=== PATIENT | male | born 1970 | race Native Hawaiian/Other Pacific Islander ===

== ENCOUNTER 2016-10-14 02:14 | Emergency (ER) | payer BC, OTHER ==
[2016-10-14] MEDS ORDERED: ZOFRAN IV ONE (02:43)
--- NOTE | 2016-10-14 03:19 | Emergency Department Report ---
HPI - General Chief Complaint: Nausea/Vomiting/Diarrhea Time Seen by Provider: 10/14/16 02:35 - HPI HPI: This is a 45-year-old male presents to the emergency department by EMS from home with complaint of a 2 day history of nausea, vomiting and diarrhea. Today the patient had 2 episodes of vomiting and the diarrhea has been too much to count. However during one of the episodes of vomiting today the patient passed out. He denies hitting his head or any significant trauma. He has some mild abdominal discomfort. He denies any past medical history. He has a primary care doctor but has not been able to see them regarding his symptoms. No recent travel or sick contacts at home. He tried some Lomotil yesterday for his diarrhea without much relief. He denies any fever, back pain, chest pain, shortness of breath. ED Past Medical Hx - Past Medical History Previous Medical History?: No - Surgical History Past Surgical History?: No - Social History Smoking Status: Never Smoker - Medications Home Medications: Home Medications Medication Instructions Recorded Confirmed Last Taken Type Ondansetron [Zofran Odt] 4 mg PO Q8H PRN #10 tab.rapdis 10/14/16 Unknown Rx ED Review of Systems ROS: Stated complaint: N/V/D Other details as noted in HPI Comment: All other systems reviewed and negative Constitutional: denies: chills, fever Eyes: denies: eye pain, eye discharge, vision change ENT: denies: ear pain, throat pain Respiratory: denies: cough, shortness of breath, wheezing Cardiovascular: syncope. denies: chest pain Gastrointestinal: abdominal pain, nausea, vomiting, diarrhea Genitourinary: denies: urgency, dysuria Musculoskeletal: denies: back pain, joint swelling, arthralgia Skin: denies: rash, lesions Neurological: denies: headache, weakness, paresthesias Physical Exam - Physical Exam Vital Signs: Vital Signs 10/14/16 10/14/16 02:21 02:25 Temperature 98.7 F Pulse Rate 80 Respiratory 18 Rate Blood Pressure 133/85 O2 Sat by Pulse 18 L 98 Oximetry Physical Exam: GENERAL: The patient is well-developed well-nourished. Pupils equal reactive to light bilaterally. HEENT: Normocephalic. Atraumatic. Extraocular motions are intact. Patient has moist mucous membranes. NECK: Supple. Trachea is midline. CHEST/LUNGS: Clear to auscultation. There is no respiratory distress noted. HEART/CARDIOVASCULAR: Regular. There is no tachycardia. There is no gallop rub or murmur. ABDOMEN: Abdomen is soft. No tenderness to palpation. No guarding or rebound tenderness. Patient has normal bowel sounds. There is no abdominal distention. SKIN: Skin is warm and dry. NEURO: The patient is awake, alert, and oriented. The patient is cooperative. The patient has no focal neurologic deficits. The patient has normal speech. MUSCULOSKELETAL: There is no tenderness or deformity. There is no limitation range of motion. There is no evidence of acute injury. ED Course Vital Signs 10/14/16 10/14/16 02:21 02:25 Temperature 98.7 F Pulse Rate 80 Respiratory 18 Rate Blood Pressure 133/85 O2 Sat by Pulse 18 L 98 Oximetry ED Medical Decision Making - Lab Data Result diagrams: 10/14/16 03:17 10/14/16 03:17 - EKG Data -: EKG Interpreted by Me EKG shows normal: sinus rhythm, axis, intervals, QRS complexes, ST-T waves ( Nonspecific ST-T) Rate: normal - EKG Data When compared to previous EKG there are: previous EKG unavailable Interpretation: nonspecific ST-T wave hima - Radiology Data Radiology results: image reviewed interpreted by me: Chest x-ray did not show any acute process. Heart is normal shape and size. No effusions. No pneumothorax. No signs of pneumonia seen. Abdominal x-ray does not show any acute process. Nonobstructive nonspecific bowel gas. - Medical Decision Making 45-year-old male presents the emergency department with 2 days of nausea, vomiting and diarrhea. He also had one syncopal episode today while vomiting. This sounds consistent with a vasovagal episode. Patient's labs are mostly unremarkable. There is no significant leukocytosis, electrolyte abnormalities, renal insufficiency or glucose abnormalities. Patient had a negative troponin. EKG does not show any signs of ST elevation [place], dysrhythmia. Chest and abdominal x-rays do not show any acute process or an etiology of symptoms. Patient was given some Zofran, IV fluid resuscitation. Upon reevaluation the patient says he is feeling much better. He has been reevaluated multiple times on multiple hours and has remained stable. Vital signs stable throughout his ED course. Patient seen ambulatory in the emergency department and appears stable. Discharged home with some Zofran and encouraged to increase oral rehydration. He will return to the ER with any worsening of his symptoms or any acute distress. - Differential Diagnosis vasovagal, orthostatic hypotension, dehydration, gastroenteritis Critical Care Time: No Critical care attestation.: If time is entered above; I have spent that time in minutes in the direct care of this critically ill patient, excluding procedure time. ED Disposition Clinical Impression: Dehydration, Vasovagal episode Nausea & vomiting Qualifiers: Vomiting type: unspecified Vomiting Intractability: non-intractable Qualified Code(s): R11.2 - Nausea with vomiting, unspecified Diarrhea Qualifiers: Diarrhea type: unspecified type Qualified Code(s): R19.7 - Diarrhea, unspecified Syncope Qualifiers: Syncope type: vasovagal syncope Qualified Code(s): R55 - Syncope and collapse Disposition: DISCHARGED TO HOME OR SELFCARE Is pt being admited?: No Condition: Stable Instructions: Dehydration (ED), Syncope (ED), Acute Nausea and Vomiting (ED), Acute Diarrhea (ED) Additional Instructions: Please increase your oral rehydration. Return to the emergency department with any worsening of your symptoms or any acute distress. Please try and follow-up with your primary care doctor the next few days. Prescriptions: Ondansetron [Zofran Odt] 4 mg PO Q8H PRN #10 tab.rapdis PRN Reason: Nausea Referrals: PRIMARY CARE, [Primary Care Provider] - 3-5 Days Forms: Accompanied Note, Work/School Release Form(ED) Time of Disposition: 06:09 Print Language: TAMAZIGHT
[2016-10-14 03:29] LABS: Basophils % (Auto) 0.6 % (0.0-1.8); Eosinophils % (Auto) 0.5 % (0.0-4.3); Hematocrit 48.8 % (35.5-45.6); Hemoglobin 16.3 gm/dl (11.8-15.2); Mean Corpuscular HGB Conc 33 % (32-34); Mean Corpuscular Hemoglobin 27 pg (28-32); Mean Corpuscular Volume 81 fl (84-94); Platelet Count 184 K/mm3 (140-440); Red Blood Count 5.99 M/mm3 (3.65-5.03); Red Cell Distribution Width 17.5 % (13.2-15.2); White Blood Count 10.4 K/mm3 (4.5-11.0)
[2016-10-14 03:56] LABS: Albumin 4.2 g/dL (3.9-5); Albumin/Globulin Ratio 1.1 %; BUN/Creatinine Ratio 26.25; Bilirubin,Total 0.7 mg/dL (0.1-1.2); Blood Urea Nitrogen 21 mg/dL (9-20); Calcium 8.9 mg/dL (8.4-10.2); Carbon Dioxide 18 mmol/L (22-30); Chloride 102.1 mmol/L (98-107); Glucose 110 mg/dL (75-100); Lipase 42 units/L (13-60); Sodium 136 mmol/L (137-145); Total Protein 8.1 g/dL (6.3-8.2)
[2016-10-14] MEDS ORDERED: NACL 0.9% 1000 ML 1,000 ML IV ONE (04:50)
[2016-10-14 05:50] LABS: Alanine Aminotransferase 76 units/L (7-56); Anion Gap 21 mmol/L; Potassium 4.7 mmol/L (3.6-5.0)
[2016-10-14 05:51] LABS: Alkaline Phosphatase 85 units/L (35-129)
[2016-10-14 06:16] LABS: Bilirubin,Urine NEG (Negative); Blood,Urine NEG (Negative); Ketones,Urine NEG (Negative); Leukocyte Esterase,Urine NEG (Negative); Mucus,Urine 1+ /HPF; Nitrite,Urine NEG (Negative); Urobilinogen,Urine < 2.0 mg/dL (<2.0)
[2016-10-14 06:44] VITALS: BP 119/71
--- NOTE | 2016-10-14 07:49 | XRay Report ---
ABDOMINAL SERIES: History: Abdominal pain, syncope. Erect chest film shows no acute or significant changes involving the heart or lung colbert. There is no evidence of free air beneath the diaphragms. The gas pattern within the abdomen is unremarkable. There is no evidence of bowel dilatation, significant air-fluid levels, or masses. Organ shadows are unremarkable. IMPRESSION: Abdominal series within normal limits.
== END 2016-10-14 06:40 | disposition home or self-care (01) ==
LOC: ED 02:14
DX: E86.0 Dehydration (principal); R55 Syncope and collapse; R11.2 Nausea with vomiting, unspecified; R19.7 Diarrhea, unspecified
CPT/HCPCS: 36415; 74022; 80053; 81001; 83690; 84484; 85025; 93005; 93010; 96361; 96374; 99285; J2405; J7030

== ENCOUNTER 2019-09-16 07:19 | Outpatient (CLI) | payer BC ==
--- NOTE | 2019-09-16 08:56 | Ultrasound Report ---
ULTRASOUND ABDOMEN, COMPLETE INDICATION: R94.5Abnormal results of liver function studies. COMPARISON: No relevant prior imaging study available. FINDINGS: Pancreas: No significant abnormality. Abdominal Aorta: No significant abnormality. IVC: No significant abnormality. Liver: Fatty liver.. Normal hepatopedal blood flow in the main portal vein. Gallbladder: Gallbladder sludge. Borderline gallbladder wall thickening.. Bile ducts: No significant abnormality. Common bile duct measures 3 mm. Kidneys: Right: No significant abnormality. Left: No significant abnormality. Spleen: Mildly enlarged measuring 13 cm craniocaudal. Free fluid: None. Additional Findings: None. IMPRESSION: Fatty liver. Gallbladder sludge. Borderline gallbladder wall thickening between 2 and 3 mm in thickne ss. Mild splenomegaly. Signer Name: Grady Alvarez MD Signed: 09/16/2019 8:51 AM Workstation Name: [employer] [id number]
== END 2019-09-16 07:20 | disposition home or self-care (01) ==
LOC: US 07:19
PROVIDERS: ATTEND Internal Medicine
DX: K76.0 Fatty (change of) liver, not elsewhere classified (principal); R16.1 Splenomegaly, not elsewhere classified; K82.8 Other specified diseases of gallbladder; R94.5 Abnormal results of liver function studies
CPT/HCPCS: 76700

== ENCOUNTER 2020-06-07 11:49 | Outpatient (CLI) | payer BC ==
[2020-06-07 12:15] LABS: Basophils # (Auto) 0.1 K/mm3 (0.0-0.1); Eosinophils % (Auto) 0.7 % (0.0-4.3); Hematocrit 45.4 % (35.5-45.6); Hemoglobin 14.9 gm/dl (11.8-15.2); Lymphocytes # (Auto) 1.9 K/mm3 (1.2-5.4); Mean Corpuscular HGB Conc 33 % (32-34); Mean Corpuscular Volume 80 fl (84-94); Monocytes # (Auto) 0.6 K/mm3 (0.0-0.8); Monocytes % (Auto) 9.5 % (0.0-7.3); Platelet Count 165 K/mm3 (140-440); Red Blood Count 5.68 M/mm3 (3.65-5.03)
[2020-06-07 13:00] LABS: Alanine Aminotransferase 51 units/L (7-56); Albumin 4.4 g/dL (3.9-5); Chol/HDL Ratio 5.75 %; HDL Cholesterol 33 mg/dL (40-59); Iron 40 ug/dL (49-181); LDL Cholesterol,Direct 129 mg/dL (50-130)
[2020-06-07 13:01] LABS: Bilirubin,Direct < 0.2 mg/dL (0-0.2)
== END 2020-06-07 11:50 | disposition home or self-care (01) ==
LOC: LAB 11:49
PROVIDERS: ATTEND Internal Medicine
DX: E78.5 Hyperlipidemia, unspecified (principal); R94.5 Abnormal results of liver function studies; D50.9 Iron deficiency anemia, unspecified
CPT/HCPCS: 36415; 80061; 80076; 82728; 83540; 85025